=== PATIENT | male | born 1970 | race Caucasian/White ===

== ENCOUNTER 2016-08-03 13:33 | Emergency (ER) | payer MEDICAID ==
[~2016-08-03] VITALS: Wt 90.0 kg
[~2016-08-03 13:33] MED LIST: HYDR-902 PO; IBUP800T25 PO
[2016-08-03] MEDS ORDERED: KETOROLAC 30 MG INJ IM STA (14:36)
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
--- NOTE | 2016-08-03 15:12 | RADRPT ---
PROCEDURE: Left rib series CLINICAL INDICATION: Atraumatic pain. TECHNIQUE: 5 views. COMPARISON: None FINDINGS: No acute fractures or lesions are noted to the visualized left ribs. IMPRESSION: 1. No significant abnormalities noted to the visualized left ribs. RPTAT: HH .Heath Bailon MD, Date Time Electronically viewed and signed by .Heath Bailon MD, on 08/03/2016 15:12 .G/
[2016-08-03] MEDS ORDERED: NAPR-260 PO (15:23)
[2016-08-03] MEDS ORDERED: HYDR-906 PO (15:23)
== END 2016-08-03 15:32 | disposition home or self-care (01) ==
LOC: FTE 13:33
DX: S20.219A Contusion of unspecified front wall of thorax, initial encounter (principal); Y04.0XXA Assault by unarmed brawl or fight, initial encounter
CPT/HCPCS: 71100; 96372; J1885; Z7502

== ENCOUNTER 2016-12-11 19:38 | Emergency (ER) | payer MEDICAID, OTHER ==
[~2016-12-11] VITALS: Ht 170.2 cm; Wt 89.0 kg
[~2016-12-11 19:38] MED LIST changes: +HYDR-906 PO; +NAPR-260 PO
[2016-12-11 19:42] VITALS: Ht 170.2 cm; Wt 89.0 kg
[2016-12-11] MEDS ORDERED: KETOROLAC 15 MG INJ IV STA (20:49)
[2016-12-11] MEDS ORDERED: HYDROmorphONE 1 MG/ML SYG IV STA ×2 (20:49→23:08)
[2016-12-11] MEDS ORDERED: ONDANSETRON 4 MG INJ IV STA ×2 (20:49→23:08)
[2016-12-11] MEDS ORDERED: SOD CHLORIDE 0.9% 1,000 ML IV STA (20:55)
[2016-12-11 21:20] LABS: ADD SCAN DIFF NO
[2016-12-11 21:24] LABS: BASOPHILS % 0.5 % (0.0-2.0); EOSINOPHILS # 0.2 10^3/ul (0.0-0.5); EOSINOPHILS % 2.4 % (0.0-7.0); HEMATOCRIT 47.4 % (42.0-52.0); HEMOGLOBIN 16.1 g/dl (14.0-18.0); LYMPHOCYTES # 3.3 10^3/ul (0.8-2.9); LYMPHOCYTES % 41.6 % (15.0-51.0); MEAN CORPUSCULAR HEMOGLOBIN 28.5 pg (29.0-33.0); MEAN CORPUSCULAR VOLUME 83.9 fl (82.0-101.0); MEAN PLATELET VOLUME 10.8 fl (7.4-10.4); MONOCYTE # 0.6 10^3/ul (0.3-0.9); MONOCYTES % 7.2 % (0.0-11.0); NEUTROPHIL # 3.8 10^3/ul (1.6-7.5); NEUTROPHILS % 47.8 % (39.0-77.0); PLATELET COUNT 253 10^3/UL (140-415); RED BLOOD COUNT 5.65 10^6/ul (4.70-6.10); RED CELL DISTRIBUTION WIDTH 13.2 % (11.5-14.5)
[2016-12-11 21:37] LABS: ALBUMIN 5.1 g/dl (3.3-4.9)
[2016-12-11 21:39] LABS: CREATININE 1.03 mg/dl (0.61-1.24)
[2016-12-11 21:40] LABS: ALBUMIN/GLOBULIN RATIO 1.75; BILIRUBIN,INDIRECT 0.8 mg/dl (0-1.1); BILIRUBIN,TOTAL 0.8 mg/dl (0.2-1.3)
[2016-12-11 21:41] LABS: CALCIUM 9.6 mg/dl (8.4-10.2)
[2016-12-11] MEDS ORDERED: SOD CHLORIDE 0.9% 100 ML ONE (21:51)
[2016-12-11] MEDS ORDERED: IOHEXOL 300MG/ML 150 ML BTL ONE (21:51)
--- NOTE | 2016-12-11 21:56 | RADRPT ---
PROCEDURE: US Scrotum. CLINICAL INDICATION: Abdominal Pain TECHNIQUE: Multiple sonographic images of the scrotal region were obtained utilizing a linear arra y transducer with grayscale and color-flow and a Doppler imaging. The images were reviewed on a high -resolution PACS workstation. COMPARISON: No prior studies are available for comparison. FINDINGS: The right testicle is well visualized and has a normal echotexture. No focal areas of abnormal echog enicity are visualized. The right testicle measures measures 5.0 x 2.4 x 3.6 cm. There is normal col or-flow. The right epididymis is visualized and unremarkable in appearance. There is normal color-fl ow. The left testicle is well visualized and has a normal echotexture. No focal areas abnormal echogenic ity are visualized. The left testicle measures measures 3.6 x 2.1 x 3.8 cm. There is normal color-fl ow. The left epididymis, with a small epididymal cyst measuring 4 x 3 mm.. There is normal color-rufina w. There is prominence of heterogeneous tissue above the left testis, which may reflect a fat contai jessie hernia. The scrotal wall is unremarkable. No swelling or edema is seen. No other incidental abnormality is identified. IMPRESSION: 1. Symmetric appearing bilateral testicular echotexture and vascular flow. 2. Small left epididymal cyst, 4 mm. 3. Prominence of heterogeneous tissue above the left testis, likely reflecting a fat containing lef t inguinal hernia. RPTAT: HBST . .Mamadou Patel MD, Date Time Electronically viewed and signed by .Mamadou Patel MD, MD on 12/11/2016 21:56 .T/
--- NOTE | 2016-12-11 22:22 | RADRPT ---
PROCEDURE: CT abdomen and pelvis with intravenous contrast. CLINICAL INDICATION: Pain. TECHNIQUE: CT of the abdomen/pelvis was performed utilizing axial images with reconstructions in s agittal and coronal planes after uneventful administration of 100 cc Omnipaque 300. The administered radiation dose is CTDI 14.5 mGy, DLP November 1948 mGy-cm. COMPARISON: 06/16/2016 FINDINGS: Visualized Chest: The visualized lung bases are clear. Abdomen: The spleen, pancreas, gallbladder,and adrenal glands are unremarkable. A tiny hypoattenuating les ion is noted within the right hepatic lobe, likely a cyst. The liver is otherwise unremarkable The kidneys are without hydronephrosis. No definite urinary calculi are seen. A tiny right renal le terrie is noted, likely a cyst. Some scarring is noted within the interpolar left kidney. There is no evidence of bowel obstruction. The appendix is normal. No intra-abdominal free air is seen. There is no evidence of intra-abdominal adenopathy or free fluid. Pelvis: There is no evidence of pelvic adenopathy or free fluid. The prostate and bladder are unremarkable. There is a moderate-sized, fat-containing left inguinal hernia which is similar appearance to the pr ior. Osseous structures: Unremarkable. IMPRESSION: Moderate size, fat-containing left inguinal hernia. RPTAT: HIKT .Mario Mayberry MD, Date Time Electronically viewed and signed by .Mario Mayberry MD, on 12/11/2016 22:22 .T/
[2016-12-11] MEDS ORDERED: HYDR-906 PO (23:00)
[2016-12-11] MEDS ORDERED: IBUP-1542 PO (23:00)
--- NOTE | 2016-12-11 23:12 | QN ---
Documentation Comment 46-year-old male with a over 4 year history of left inguinal hernia which is usually easily reducible and only protrudes when he is standing up presents the ED complaining of a four-day history of increasing pain with the hernia protruding even while lying down. He has been having difficulty reducing it. Denies any other abdominal pain, nausea or vomiting. No dysuria, polyuria or testicular pain. No fevers or chills. On physical examination he is afebrile with normal vital signs. Abdomen is soft and nontender. There is a large left renal hernia with scrotal component that is tender but easily reducible. CT findings reveal a hernia with fat contents only and no evidence of bowel obstruction. No evidence of strangulation or incarceration. Stable for discharge precautionary instructions, appropriate analgesics and outpatient follow-up as counseled. FRANKIE IRIZARRY MD December 11, 2016 23:12
[2016-12-11 23:22] VITALS: BP 138/62; PULSE 78; RESP 20; TEMP 98.1
--- NOTE | 2016-12-11 23:26 | ERD ---
ER Documentation Chief Complaint Date/Time DATE: 12/11/16 TIME: 23:14 Chief Complaint LL PELVIC PAIN X1 DAY +N/V HX HERNIA HPI This is a 46-year-old male with history of left sided inguinal hernia for the past 4 years presenting to the emergency department complaining of left-sided pelvic pain, nausea, couple episodes of vomiting in the past 4 days. Patient states the pain is 10 out of 10, constant. Patient states he is unable to reduce his inguinal hernia while he was able to reduce earlier. Patient states he tried [place] 3 hours prior to receiving without any relief. Patient denies any fevers, dysuria, diarrhea. ROS All systems reviewed and are negative except as per history of present illness. Medications Home Meds Active Scripts Ibuprofen* (Ibuprofen*) 600 Mg Tablet, 600 MG PO Q6H Y for PAIN AND OR ELEVATED TEMP, #30 TAB Prov:LUIS ALBERTO GRIER PA-C 12/11/16 Hydrocodone/Acetaminophen ([place] 5-325 Tablet) 1 Each Tablet, 1-2 TAB PO Q6H Y for PAIN, #30 TAB Prov:LUIS ALBERTO GRIER PA-C 12/11/16 Naproxen* (Naprosyn*) 500 Mg Tablet, 500 MG PO BID Y for PAIN AND/OR INFLAMMATION, #20 TAB Prov:LYNDA PAYAN PA-C 08/03/16 Hydrocodone/Acetaminophen ([place] 5-325 Tablet) 1 Each Tablet, 1 EACH PO DAILY, # 7 TAB Prov:LYNDA PAYAN PA-C 08/03/16 Hydrocodone/Acetaminophen ([place] 10-325 Tablet) 1 Each Tablet, 1 TAB PO Q6H Y for PAIN, #20 TAB Prov:EMIGDIO KAUFMAN PA-C 06/16/16 Ibuprofen* (Motrin*) 800 Mg Tab, 800 MG PO Q6H Y for PAIN AND OR ELEVATED TEMP, #30 TAB Prov:EMIGDIO KAUFMAN PA-C 06/16/16 Ibuprofen* (Motrin*) 800 Mg Tab, 800 MG PO Q6H Y for PAIN AND OR ELEVATED TEMP, #30 TAB Prov:BARB VENEGAS PA-C 01/25/15 Allergies Allergies: Coded Allergies: No Known Allergy (Unverified , 12/11/16) PMhx/Soc Medical and Surgical Hx: pt denies Medical Hx, pt denies Surgical Hx History of Surgery: No Anesthesia Reaction: No Hx Neurological Disorder: No Hx Respiratory Disorders: No Hx Cardiac Disorders: No Hx Psychiatric Problems: No Hx Miscellaneous Medical Probl: No Hx Alcohol Use: Yes (OCCASSIONAL) Hx Substance Use: No Hx Tobacco Use: No Smoking Status: Never smoker Physical Exam Vitals Vital Signs Date Time Temp Pulse Resp B/P Pulse Ox O2 Delivery O2 Flow Rate FiO2 12/11/16 23:22 98.1 78 20 138/62 12/11/16 19:42 98.3 70 18 154/95 98 Physical Exam GENERAL: well-developed/well-nourished, in no apparent distress, non-toxic appearing HENT: NC/AT, moist mucous membranes EYES: Conjunctiva normal NECK: Supple, no lymphadenopathy PULM: CTA bilaterally, no rales, rhonchi, or wheezing heard CV: Normal S1S2, RRR, good capillary refill GI: Soft, non-distended, tender to palpation left pelvic region Left testicular swelling with large left inguinal hernia Normal bowel sounds, no masses or organomegaly felt on exam No gross peritonitis, no bruits Negative Rovsing, negative Mercado, negative McBurney's point, Negative CVAT BACK: No masses EXT: No clubbing, cyanosis, or edema NEURO: Alert and Orientated SKIN: Intact, normal turgor PSYCH: Normal mood and mentation Result Diagram: 12/11/16209912/11/16 2100 Results 24 hrs Laboratory Tests Test 12/11/16 21:00 White Blood Count 8.010^3/ul Red Blood Count 5.6510^6/ul Hemoglobin 16.1g/dl Hematocrit 47.4% Mean Corpuscular Volume 83.9fl Mean Corpuscular Hemoglobin 28.5pg Mean Corpuscular Hemoglobin Concent 34.0g/dl Red Cell Distribution Width 13.2% Platelet Count 85102^3/UL Mean Platelet Volume 10.8fl Neutrophils % 47.8% Lymphocytes % 41.6% Monocytes % 7.2% Eosinophils % 2.4% Basophils % 0.5% Nucleated Red Blood Cells % 0.0/100WBC Neutrophils # 3.810^3/ul Lymphocytes # 3.310^3/ul Monocytes # 0.610^3/ul Eosinophils # 0.210^3/ul Basophils # 0.010^3/ul Nucleated Red Blood Cells # 0.010^3/ul Sodium Level 143mmol/L Potassium Level 4.0mmol/L Chloride Level 112mmol/L Carbon Dioxide Level 24mmol/L Anion Gap 11 Blood Urea Nitrogen 19mg/dl Creatinine 1.03mg/dl Glucose Level 124mg/dl Calcium Level 9.6mg/dl Total Bilirubin 0.8mg/dl Direct Bilirubin 0.00mg/dl Indirect Bilirubin 0.8mg/dl Aspartate Amino Transf (AST/SGOT) 41IU/L Alanine Aminotransferase (ALT/SGPT) 83IU/L Alkaline Phosphatase 99IU/L Total Protein 8.0g/dl Albumin 5.1g/dl Globulin 2.90g/dl Albumin/Globulin Ratio 1.75 Current Medications Medications (Trade) Dose Ordered Sig/Stephany Route PRN Reason Start Time Stop Time Status Last Admin Dose Admin Ondansetron HCl (Zofran Inj) 4 mg ONCE STAT IV 12/11/16 20:49 12/11/16 20:51 DC 12/11/16 21:01 Ketorolac Tromethamine (Toradol) 15 mg ONCE STAT IV 12/11/16 20:49 12/11/16 20:51 DC 12/11/16 21:01 Hydromorphone HCl 1 mg 1 mg ONCE STAT IV 12/11/16 20:49 12/11/16 20:51 DC 12/11/16 21:02 Sodium Chloride (NS) 1,000 ml @ 1,000 mls/hr Q1H STAT IV 12/11/16 20:55 12/11/16 21:54 DC 12/11/16 21:01 IV Flush 10 ml 10 ml STK-MED ONCE .ROUTE 12/11/16 21:51 12/11/16 21:52 DC 12/11/16 22:08 Sodium Chloride (NS) 100 ml @ ud STK-MED ONCE .ROUTE 12/11/16 21:51 12/11/16 21:52 DC 12/11/16 22:08 Iohexol (Omnipaque 300mg/ ml) 150 ml STK-MED ONCE .ROUTE 12/11/16 21:51 12/11/16 21:52 DC 12/11/16 22:08 Hydromorphone HCl (Dilaudid) 0.5 mg ONCE STAT IV 12/11/16 23:08 12/11/16 23:09 DC 12/11/16 23:13 Ondansetron HCl (Zofran Inj) 4 mg ONCE STAT IV 12/11/16 23:08 12/11/16 23:09 DC 12/11/16 23:13 Procedures/MDM This is a 46-year-old male with a history of left inguinal hernia presenting to the emergency department complaining worsening pain and unable to reduce the hernia even while laying down for the past four days. There is no evidence of strangulation or incarceration, patient is stable to be discharged home to follow-up with PCP for referral for surgery. In the ED, my supervising physician was consulted and we were able to reduce the hernia. Lab work was drawn. CBC did not show any evidence of leukocytosis or anemia. CMP did not show any evidence of renal, liver, or electrolyte abnormalities. Lipase was normal. UA did not show any evidence of hemoglobin or urinary tract infection. Patient's pain stabilized in the ED with Dilaudid and antiemetics. The patient to follow-up with primary care physician as soon as possible, strict precautions were given to return to the emergency department for any worsening signs or symptoms. Patient understands and agrees with this plan. CT abd and pelvis with contrast: Moderate size, fat-containing left inguinal hernia. Testicular US: 1. Symmetric appearing bilateral testicular echotexture and vascular flow. 2. Small left epididymal cyst, 4 mm. 3. Prominence of heterogeneous tissue above the left testis, likely reflecting a fat containing left inguinal hernia. Departure Diagnosis: Primary Impression: Inguinal hernia Additional Impression: Pelvic pain in male Condition: Stable Patient Instructions: How a Hernia Develops, Having Hernia Surgery: Patch Repair, Hernia (Inguinal, Ventral, Umbilical) Referrals: NO PRIMARY,CARE PHYSICIAN (PCP) [facility] ([facility]) Usted se winn hecho un examen mdico de control que le indica que no est en [place] condicin que requiera tratamiento urgente en el Departamento de Emergencia. Un estudio ms profundo y el tratamiento de [place] condicin pueden esperar sin ningn riesgo hasta que usted sea atendida/o en el consultorio de [place] mdico o chelsea cl gene. Es responsabilidad suya arreglar chelsea karlos para el seguimiento del bindu. MANEJO DE CONDICIONES NO URGENTES EN EL FUTURO 1) Si usted tiene un mdico de atencin primaria: Usted debera llamar a [place] mdico de atencin primaria antes de venir al departamento de emergencia. Despus de las horas de consultorio, [place] doctor o [place] asociado/a est disponible por telfono. El mdico o enfermero de nikolai en el servicio telefnico puede asesorarle por noa medio para atender el problema, o bindu contrario se puede programar chelsea karlos. 2) Si usted no tiene un mdico de atencin primaria: Llame al mdico o clnica de referencia que aparece abajo maddy las horas de consultorio para hacer chelsea karlos para que le vean. CLINICAS: [place] [id number] [phone] [facility] [place] [phone] [facility] [facility] [phone] [facility] [place] [id number] [phone] [facility]. [place] [id number] [phone] [facility] [phone] Additional Instructions: Visite a [place] mdico maana para un EXAMEN.Regrese a estas instalaciones si no se mejora ramsey esperbamos o ramsey le dijimos. [place] toda la medicina skyler y ramsey se le indic. Regrese a estas instalaciones si no se mejora ramsey esperbamos o ramsey le dijimos. La medicina que se le recet puede causarle sueo.NO DEBE MANEJAR NI OPERAR MAQUINARIAS PELIGROSAS mientras esta tomando esta medicina! LUIS ALBERTO GRIER PA-C December 11, 2016 23:25
== END 2016-12-11 23:23 | disposition home or self-care (01) ==
LOC: FTE 19:38
DX: K40.90 Unilateral inguinal hernia, without obstruction or gangrene, not specified as recurrent (principal); R11.2 Nausea with vomiting, unspecified
CPT/HCPCS: 36415; 74177; 76870; 80053; 85025; 96374; 96375; 96376; J1170; J1885; J2405; J7030; Q9967; Z7502; Z7610

== ENCOUNTER 2017-06-26 20:40 | Emergency (ER) | payer SELFPAY ==
[~2017-06-26] VITALS: Ht 177.8 cm; Wt 86.3 kg
[~2017-06-26 20:40] MED LIST changes: +IBUP-1542 PO
[2017-06-26 20:42] VITALS: Ht 177.8 cm; Wt 86.3 kg
== END 2017-06-26 23:00 | disposition left against medical advice (07) ==
LOC: E/R 20:40
DX: Z53.21 Procedure and treatment not carried out due to patient leaving prior to being seen by health care provider (principal)

== ENCOUNTER 2017-07-03 13:41 | Emergency (ER) | payer SELFPAY ==
[~2017-07-03] VITALS: Ht 160 cm; Wt 76.0 kg
[2017-07-03 13:43] VITALS: Ht 160 cm; Wt 76.0 kg
[2017-07-03] MEDS ORDERED: KETOROLAC 60 MG INJ IM STA (14:50)
[2017-07-03] MEDS ORDERED: NAPR-260 PO (15:10)
--- NOTE | 2017-07-03 15:19 | ERD ---
ER Documentation Chief Complaint Chief Complaint left knee pain HPI 46-year-old male complaining of left knee pain 4 days. Patient stated the pain had sudden onset, denies any recent injuries. Patient stated that he had ligamental tear 15 years ago while playing soccer. He thinks he is 1 of the cruciate ligaments. He did not have any healthcare, he did not had any surgery. He also thinks that he has issue with meniscus. He has steroid injections to his left knee in the past in [place], states that they had helped. Great deal at a time. Patient reports when he standing he feels sometimes his knee would get "give out". He also feels that he is knee catches when he is trying to move it. Denies fever or chills. ROS All systems reviewed and are negative except as per history of present illness. Medications Home Meds Active Scripts Naproxen* (Naprosyn*) 500 Mg Tablet, 500 MG PO BID Y for PAIN AND/OR INFLAMMATION, #30 TAB Prov:CRISTOBAL HAYES NP 07/03/17 Ibuprofen* (Ibuprofen*) 600 Mg Tablet, 600 MG PO Q6H Y for PAIN AND OR ELEVATED TEMP, #30 TAB Prov:LUIS ALBERTO GRIER PA-C 12/11/16 Hydrocodone/Acetaminophen (Douglas 5-325 Tablet) 1 Each Tablet, 1-2 TAB PO Q6H Y for PAIN, #30 TAB Prov:LUIS ALBERTO GRIER PA-C 12/11/16 Naproxen* (Naprosyn*) 500 Mg Tablet, 500 MG PO BID Y for PAIN AND/OR INFLAMMATION, #20 TAB Prov:LYNDA PAYAN PA-C 08/03/16 Hydrocodone/Acetaminophen (Douglas 5-325 Tablet) 1 Each Tablet, 1 EACH PO DAILY, # 7 TAB Prov:LYNDA PAYAN PA-C 08/03/16 Hydrocodone/Acetaminophen (Douglas 10-325 Tablet) 1 Each Tablet, 1 TAB PO Q6H Y for PAIN, #20 TAB Prov:EMIGDIO KAUFMAN PA-C 06/16/16 Ibuprofen* (Motrin*) 800 Mg Tab, 800 MG PO Q6H Y for PAIN AND OR ELEVATED TEMP, #30 TAB Prov:EMIGDIO KAUFMAN PA-C 06/16/16 Ibuprofen* (Motrin*) 800 Mg Tab, 800 MG PO Q6H Y for PAIN AND OR ELEVATED TEMP, #30 TAB Prov:BARB VENEGAS PA-C 01/25/15 Allergies Allergies: Coded Allergies: No Known Allergy (Unverified , 07/03/17) PMhx/Soc History of Surgery: No Anesthesia Reaction: No Hx Neurological Disorder: No Hx Respiratory Disorders: No Hx Cardiac Disorders: No Hx Psychiatric Problems: No Hx Miscellaneous Medical Probl: No Hx Alcohol Use: Yes (OCCASSIONAL) Hx Substance Use: No Hx Tobacco Use: No Smoking Status: Never smoker Physical Exam Vitals Vital Signs Date Time Temp Pulse Resp B/P Pulse Ox O2 Delivery O2 Flow Rate FiO2 07/03/17 13:43 98.1 69 18 133/85 99 Physical Exam General: Well-developed, well-nourished, conscious and coherent, in no distress Skin: Warm and dry without rash, good texture and turgor Head: Normocephalic without evidence of trauma Eyes: Sclera and conjunctivae normal; pupils equal, round, and reactive to light; extraocular movements are intact Chest: Normal AP diameter. Good expansion without retractions. Nontender. Lungs are clear to auscultate bilaterally with good tidal volume Heart: Regular rate and rhythm. No murmur, rub, or gallops heard Extremities: Patient able to bear weight and ambulate without pain. No surface trauma, soft tissue swelling or obvious effusion. No overlying erythema or warmth. The left knee is without obvious asymmetry or deformity compared to the right. Patient able to do deep knee bend, fully extend knee, internal/external rotation. Nontender to palpation of the patella, no effusion or ballottement. Nontender over the infrapatellar tendon. Tenderness over the lateral joint line. Nontender over the proximal fibular head. Nontender, fullness, or mass of the popliteal fossa. No quadriceps tenderness. No laxity of the ACL, PCL, MCL, or LCL. No collateral ligament laxity to valgus or varus stress. Negative drawer sign. Distal motor and neurovascular status intact. Full range of motion. Good strength bilaterally. No clubbing, cyanosis, or edema. Peripheral pulses are intact. Sensation intact Neuro: Alert and oriented 4, GCS 15. Cranial nerves grossly intact. Motor and sensory exams nonfocal. Moves all extremities. Speech clear. Gait normal Results 24 hrs Current Medications Medications (Trade) Dose Ordered Sig/Stephany Route PRN Reason Start Time Stop Time Status Last Admin Dose Admin Ketorolac Tromethamine (Toradol) 60 mg ONCE STAT IM 07/03/17 14:50 07/03/17 14:52 DC 07/03/17 15:02 PROCEDURE: XR Knee. CLINICAL INDICATION: Left knee pain TECHNIQUE: 3 images of the left knee are available for review. COMPARISON: None available FINDINGS: There is no acute fracture. Alignment is normal. There is mild to moderate tricompartmental osteoarthrosis with fairly prominent subchondral osteophyte at the central/posterior lateral femoral condyle. There is a small to moderate-sized knee joint effusion. IMPRESSION: 1. No radiographic evidence of acute osseous abnormality noting mild to moderate tricompartmental osteoarthrosis. 2. Small to moderate-sized knee joint effusion. RPTAT: UU .Dawit Michael MD, MD Date Time Electronically viewed and signed by .Dawit Michael MD, on 07/03/2017 15: 36 .K/ CC: CRISTOBAL HAYES ETHYL BLENDER Procedures/MDM Well-appearing 46-year-old male with history of knee injury presented to the ED with left knee pain. X-ray left knee showed no acute osseous abnormalities. Mild to moderate arthritis is noted with small to moderate joint effusion. I think patient is knee pain is acute on chronic in nature. There is no joint instability noted on exam. Differentials include but not limited to ligamentous injuries, patellar dislocation, total knee dislocation, patella or tibia fracture, Pardo's cyst, DVT, meniscus tear, ACL or PCL tear, patellar bursitis, septic joint, gout, or tumor. Patient given Toradol IM in the ED for pain. Patient reports improvement pain after Toradol. The area of injury was immobilized with an Thomas wrap. Patient was noted to be comfortable and neurovascularly intact both before and after the immobilization. Patient is is advised to follow-up with marketing content specialist. Community clinics and [facility] referral provided for the patient. Patient appears well, stable for discharge and outpatient management. Medical decision making shared with patient and family. Education provided to patient and family. Patient and family expressed understanding of the plan. Medications on discharge: Naproxen. Follow-up: Primary care provider in 2-3 days or return to ED if worse. Disclaimer: Inadvertent spelling and grammatical errors are likely due to EHR/ dictation software use and do not reflect on the overall quality of patient care. Also, please note that the electronic time recorded on this note does not necessarily reflect the actual time of the patient encounter. Departure Diagnosis: Primary Impression: Knee pain Chronicity: chronic Laterality: left Qualified Code: M25.562 - Chronic pain of left knee Condition: Stable Patient Instructions: Treating Meniscus Problems, Knee Pain, Uncertain Cause, Cruciate Ligament Injury Referrals: [facility] se winn hecho un examen mdico de control que le indica que no est en [place] condicin que requiera tratamiento urgente en el Departamento de Emergencia. Un estudio ms profundo y el tratamiento de [place] condicin pueden esperar sin ningn riesgo hasta que usted sea atendida/o en el consultorio de bar[place] mdico o che[place]sea cl gene. Es responsabilidad suya arreglar chelsea willem para el seguimiento del bindu. MANEJO DE CONDICIONES NO URGENTES EN EL FUTURO 1) Si usted tiene un mdico de atencin primaria: Usted debera llamar a [place] mdico de atencin primaria antes de venir al departamento de emergencia. Despus de las horas de consultorio, [place] doctor o [place] asociado/a est disponible por telfono. El mdico o enfermero de nikolai en el servicio telefnico puede asesorarle por noa medio para atender el problema, o bindu contrario se puede programar chelsea willem. 2) Si usted no tiene un mdico de atencin primaria: Llame al mdico o clnica de referencia que aparece abajo maddy las horas de consultorio para hacer chel[place] willem para que le vean. CLINICAS: [facility] [phone] [facility] [phone] [facility] [phone] [facility] [phone] [place] [id number] [phone] [place] [id number] [phone] [facility]. [facility] () Usted se winn hecho un examen mdico de control que le indica que no est en [place] condicin que requiera tratamiento urgente en el Departamento de Emergencia. Un estudio ms profundo y el tratamiento de bar[place] condicin pueden esperar sin ningn riesgo hasta que usted sea atendida/o en el consultorio de bar[place] mdico o chel[place] cl gene. Es responsabilidad suya arreglar chelsea willem para el seguimiento del bindu. MANEJO DE CONDICIONES NO URGENTES EN EL FUTURO 1) Si usted tiene un mdico de atencin primaria: Usted debera llamar a [place] mdico de atencin primaria antes de venir al departamento de emergencia. Despus de las horas de consultorio, [place] doctor o [place] asociado/a est disponible por telfono. El mdico o enfermero de nikolai en el servicio telefnico puede asesorarle por noa medio para atender el problema, o bindu contrario se puede programar chelsea willem. 2) Si usted no tiene un mdico de atencin primaria: Llame al mdico o condado institucions de referencia que aparece abajo maddy las horas de consultorio para hacer chelsea willem para que le vean. SI USTED NO PUEDE PAGAR PARA JIHAN UN MEDICO puede ir a: [facility] [address] [place] [address] [facility] [address] [place] [address] [facility] [address] [place] [address] [facility]A [facility] [address] [place] [place], [place] [id number] Additional Instructions: Llame al doctor MAANA y zaniab chelsea WILLEM PARA DENTRO DE 2-3 CRAIG.Dgale a la secretaria que nosotros le instruimos hacer esta willem.Avise o llame si bar[place]ona condicin se empeora antes de la willem. Regresa aqui si peor o no mejor. CRISTOBAL HAYES. NOEMY Jul 03, 2017 15:19
--- NOTE | 2017-07-03 15:36 | RADRPT ---
PROCEDURE: XR Knee. CLINICAL INDICATION: Left knee pain TECHNIQUE: 3 images of the left knee are available for review. COMPARISON: None available FINDINGS: There is no acute fracture. Alignment is normal. There is mild to moderate tricompartmental osteoarthrosis with fairly prominent subchondral osteophy te at the central/posterior lateral femoral condyle. There is a small to moderate-sized knee joint e ffusion. IMPRESSION: 1. No radiographic evidence of acute osseous abnormality noting mild to moderate tricompartmental os teoarthrosis. 2. Small to moderate-sized knee joint effusion. RPTAT: UU .Dawit Michael MD, MD Date Time Electronically viewed and signed by .Dawit Michael MD, MD on 07/03/2017 15:36 .K/
== END 2017-07-03 16:02 | disposition home or self-care (01) ==
LOC: FTE 13:41
DX: M25.562 Pain in left knee (principal)
CPT/HCPCS: 73562; 96372; 99284; J1885

== ENCOUNTER 2017-07-24 10:15 | Emergency (ER) | END 2017-07-24 12:00 | disposition home or self-care (01) ==